=== PATIENT | male | born 1970 | race Caucasian/White ===

== ENCOUNTER 2022-06-07 13:10 | Emergency (ER) | payer OTHER, SELFPAY ==
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
[2022-06-07 13:23] VITALS: BP 138/79; PULSE 78; RESP 16; TEMP 36; O2SAT 99
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
== END 2022-06-07 15:10 | disposition home or self-care (01) ==
PROVIDERS: Emergency Provider Nurse Practitioner
DX: S16.1XXA Strain of muscle, fascia and tendon at neck level, initial encounter (principal); M25.511 Pain in right shoulder; V89.2XXA Person injured in unspecified motor-vehicle accident, traffic, initial encounter; M54.6 Pain in thoracic spine
CPT/HCPCS: 72050; 73030; 99214; G0463

== ENCOUNTER 2022-10-31 10:02 | Emergency (ER) | payer OTHER, SELFPAY ==
--- NOTE | ~2022-10-31 | XR_ITS ---
XR hand LT min 3V DATE: 10/31/2022 10:46 INDICATION: Fall. Left fifth digit pain, swelling, deformity TECHNIQUE: 4 views COMPARISON: None FINDINGS: There is a comminuted fracture the proximal phalanx of the fifth digit, including the base, with intra-articular extension at the fifth metacarpophalangeal joint. Continuing into the mid to di stal shaft. Approximately 30 degrees apex anterior angulation and approximately one cortical width lateral and an terior displacement. No other fracture or dislocation. 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 IMPRESSION: Comminuted intra-articular fracture of the proximal phalanx of the fifth digit Reviewed, dictated and finalized at location B.
[2022-10-31 10:18] VITALS: BP 136/90; PULSE 89; RESP 12; TEMP 36.3; O2SAT 97
--- NOTE | 2022-10-31 10:47 | ED.FALL ---
HPI - Fall General Chief Complaint: Wound/Laceration Stated Complaint: left hand-elbow/ right shoulder pain Time Seen by Provider: 10/31/22 10:30 Source: patient Mode of arrival: ambulatory Limitations: no limitations History of Present Illness HPI Narrative: Mr. Tavarez is a 52-year-old male patient presenting to clinic today with complaints of laceration to the left elbow, left 5th finger injury, and some right shoulder pain that occurred after falling in the bathroom. He reports he was getting out of the shower and slipped on the wood floor. He denies hitting his head or any loss of consciousness. He denies any neck pain. Left elbow is bleeding due to the laceration. Tetanus is up-to-date within last 10 years. Related Data Home Medications Medication Instructions Recorded Confirmed No Home Medications 10/31/22 10/31/22 Allergies Allergy/AdvReac Type Severity Reaction Status Date / Time No Known Allergies Allergy Verified 10/31/22 10:23 Review of Systems Review of Systems: Pertinent positives per HPI. Patient denies any fever, chills, rash, headache, visual changes, dizziness, cough, runny nose, sore throat, shortness of breath, chest pain, palpitations, nausea, vomiting, diarrhea, constipation, abdominal pain, or any urinary issues. PMFSH Past Medical History Medical History (Updated 10/31/22 @ 11:39 by Urbano Boss APRN) Patient denies medical problems Surgical History Surgical History No history of previous surgery Family History Family History Mother Family history of malignant neoplasm of breast in first degree relative Social History Social History Smoking status: Never smoker Second hand tobacco smoke exposure: No Alcohol intake: never Comments At the time of my signature, I reviewed and agree with the nursing past medical, surgical, social, and family history. There is no relevant family history pertinent to the patient complaint. Exam Narrative: General: Well-developed, well nourished, in no apparent distress Head: Normocephalic, atraumatic. Cardio: Regular rate and rhythm, s1 and s2 normal, no murmur appreciated. Resp: Clear to auscultation bilaterally, no rhonchi, rales, wheezing or rubs. Musculoskeletal: Deformity of the left 5th finger, tender to palpation over the mid and proximal phalanx of the left 5th finger, swelling to the left 5th finger with delayed cap refill, limited movement but is able to move left 5th finger without resistance, left elbow and right shoulder grossly normal range of motion, muscle strength strong and equal, peripheral pulse strong, no cyanosis, normal gait and station Integumentary: Warm, and dry, swelling and decreased blanching/cap refill in the left 5th finger, 1 cm laceration to the left posterior elbow-bleeding controlled Course Course Emergency Course: Portions of this record may have been created with voice recognition software. Level of Care: Express Care Visit Vital Signs Vital signs: Vital Signs Temperature 36.3 C L 10/31/22 10:18 Pulse Rate 89 10/31/22 10:18 Respiratory Rate 12 10/31/22 10:18 Blood Pressure 136/90 10/31/22 10:18 Pulse Oximetry 97 10/31/22 10:18 Oxygen Delivery Room Air 10/31/22 10:18 Temperature 36.3 C L 10/31/22 10:18 Pulse Rate 89 10/31/22 10:18 Respiratory Rate 12 10/31/22 10:18 Blood Pressure 136/90 10/31/22 10:18 Pulse Oximetry 97 10/31/22 10:18 Oxygen Delivery Room Air 10/31/22 10:18 Vital signs reviewed Procedures Laceration Laceration 1: Date: 10/31/22 Site: upper extremity (posterior elbow) Side (If applicable): left Size (cm): 1 Description: linear Depth: simple, single layer Local Anesthetic: lidocaine 1% Am
== END 2022-10-31 11:53 | disposition home or self-care (01) ==
PROVIDERS: Emergency Provider Nurse Practitioner Family
DX: S51.012A Laceration without foreign body of left elbow, initial encounter (principal); S62.617A Displaced fracture of proximal phalanx of left little finger, initial encounter for closed fracture; W18.2XXA Fall in (into) shower or empty bathtub, initial encounter; Y92.002 Bathroom of unspecified non-institutional (private) residence as the place of occurrence of the external cause
CPT/HCPCS: 12001; 29125; 73130; 99213; A4565; G0463

== ENCOUNTER 2022-11-12 15:03 | Emergency (ER) | payer OTHER, SELFPAY ==
--- NOTE | 2022-11-12 15:09 | ED.WOUNDLAC ---
HPI - Wound/Laceration General Chief Complaint: Skin/Abscess/Foreign Body Stated Complaint: Stitch Removal Time Seen by Provider: 11/12/22 15:18 Source: patient and RN notes reviewed Mode of arrival: ambulatory Limitations: no limitations History of Present Illness HPI narrative: 52-year-old male presents concern for suture removal. He reports 2 sutures in his elbow that were placed on October 31. Denies any problems, redness, swelling, pain to the area. Related Data Home Medications Medication Instructions Recorded Confirmed meloxicam 15 mg tablet 7.5 mg PO BID 11/12/22 11/12/22 Allergies Allergy/AdvReac Type Severity Reaction Status Date / Time No Known Allergies Allergy Verified 11/12/22 15:07 Review of Systems Review of Systems: CONSTITUTIONAL: Denies malaise, chills, sweats, or fever. SKIN: Reports intact sutures to the left elbow MUSCULOSKELETAL: Denies muscle skeletal pain NEUROLOGIC: Denies numbness, weakness All systems reviewed & are unremarkable except as noted in HPI and below PMFSH Past Medical History Medical History (Updated 11/12/22 @ 15:25 by Gabby Real NP) Patient denies medical problems Surgical History Surgical History No history of previous surgery Family History Family History Mother Family history of malignant neoplasm of breast in first degree relative Social History Social History Smoking status: Never smoker Second hand tobacco smoke exposure: No Alcohol intake: never Comments At time of signature, agree with nursing past medical, surgical, social and family history. There is no relevant family history pertinent to the presenting complaint Exam Narrative: GENERAL: Well-appearing, well-nourished, and in no acute distress. HEAD: Normocephalic, atraumatic. EYES: PERRLA, conjunctivae clear ENT: Mucous membranes moist. NECK: Supple. No lymphadenopathy CHEST: Clear to auscultation. No respiratory distress. HEART: Regular rate and rhythm. SKIN: Warm, dry. One intact suture noted to the left elbow, no 2nd suture present. No surrounding erythema, edema, induration, tenderness, drainage NEURO: Alert and oriented x3. PSYCH: Normal mood and affect Course Course Emergency Course: Patient is aware of diagnosis, understands and agrees to treatment plan. Anticipatory guidance given. Patient agrees to follow-up as directed and is aware of reasons to seek care at the emergency department. Portions of this record may have been created with voice recognition software Level of Care: Express Care Visit Vital Signs Vital signs: Reviewed. Procedures Other Procedure Procedure 1: Other Procedure: Verbal consent was obtained. Wound well approximated, no erythema, induration, or discharge noted. One intact suture completely removed in a sterile fashion. Patient tolerated procedure well, no complications. Patient advised to look for and return for any signs of infection such as redness, swelling, discharge, or worsening pain. MDM - Wound/Laceration MDM Narrative Medical decision making narrative: Exam findings show no acute concerns or changes; patient is non-toxic appearing and is in no distress. Patient is appropriate for outpatient treatment and follow-up. Differential Diagnosis Differential diagnosis: Likely laceration, abrasion and avulsion of skin Critical Care Time Critical Care Time Critical Care Time: No Discharge Plan Discharge Clinical Impression: Visit for suture removal Patient Disposition: Home, Self-Care Condition: Stable Instructions: Stitches Removal (ED) Additional Instructions: 1) Please follow-up with your primary care doctor as needed for any further concerns. 2) If you have any urgent concerns please go to the ER. 3) Please read and f
[2022-11-12 15:10] VITALS: BP 131/94; PULSE 71; RESP 12; TEMP 36.6; O2SAT 99
== END 2022-11-12 15:27 | disposition home or self-care (01) ==
PROVIDERS: Emergency Provider Nurse Practitioner; PCP Family Medicine
DX: S51.012D Laceration without foreign body of left elbow, subsequent encounter (principal); X58.XXXD Exposure to other specified factors, subsequent encounter
CPT/HCPCS: 99211; G0463